=== PATIENT | female | born 1980 | race Caucasian/White ===

== ENCOUNTER 2017-11-05 19:00 | Inpatient (IN) | payer OTHER ==
[~2017-11-05] VITALS: Ht 165.1 cm; Wt 78.0 kg
[2017-11-12] MEDS ORDERED: CA C1TAB63 PO (06:56)
[2017-11-12] MEDS ORDERED: PREN1TAB60 PO (06:56)
[2017-11-12] MEDS ORDERED: OXYTOCIN 30U/ 0.9% NaCL 500ML 500 ML IV PRN (07:41)
[2017-11-12] MEDS ORDERED: OXYTOCIN 30U/ 0.9% NaCL 500ML 500 ML IV ONE (07:41)
[2017-11-12] MEDS ORDERED: TERBUTALINE 1 MG/ML, 1ML IVPush PRN ×2 (08:00)
[2017-11-12] MEDS ORDERED: TERBUTALINE 1 MG/ML, 1ML SQ PRN (08:00)
[2017-11-12] MEDS ORDERED: ONDANSETRON 2MG/ML, 2ML IVPush PRN (08:00)
[2017-11-12] MEDS ORDERED: FENTANYL PF 100 MCG/2ML IV PRN (08:00)
[2017-11-12] MEDS ORDERED: ALUMINUM/MAG/SIMETHICONE 30 ML UDC PO PRN (08:00)
[2017-11-12] MEDS ORDERED: METOCLOPRAMIDE 5 MG/ML, 2ML IVPush PRN (08:00)
[2017-11-12] MEDS ORDERED: OXYTOCIN 30U/ 0.9% NaCL 500ML 500 ML ONE ×2 (08:12→09:06)
[2017-11-12] MEDS: LACTATED RINGERS 1,000 ML IV SCH ×3 (08:24→14:50)
[2017-11-12 08:27] VITALS: BP 109/72
[2017-11-12 08:34] LABS: BASOPHILS # (AUTO) 0.02 x10^3/uL (0-0.1); BASOPHILS % (AUTO) 0 % (0-1); EOSINOPHILS # (AUTO) 0.05 x10^3/uL (0-0.4); EOSINOPHILS % (AUTO) 1 % (1-7); LYMPHOCYTES # (AUTO) 1.07 x10^3/uL (1-3.4); LYMPHOCYTES % (AUTO) 15 % (22-44); MD NO; MEAN CORPUSCULAR HEMOGLOBIN 31.8 pg (27.0-34.8); MEAN CORPUSCULAR HGB CONC 34.4 g/dL (32.4-35.8); MEAN CORPUSCULAR VOLUME 92.5 fL (80-100); MEAN PLATELET VOLUME 9.8 fL (7.4-10.4); MONOCYTES # (AUTO) 0.54 x10^3/uL (0.2-0.8); MONOCYTES % (AUTO) 7 % (2-9); NEUTROPHILS # (AUTO) 5.61 x10^3/uL (1.8-6.8); NEUTROPHILS % (AUTO) 77 % (42-75); PLATELET COUNT 128 x10^3/uL (130-400); RED BLOOD COUNT 3.67 x10^6/uL (3.82-5.3); RED CELL DISTRIBUTION WIDTH 14.1 % (9.6-15.2)
[2017-11-12] MEDS ORDERED: MISOPROSTOL 200 MCG TABLET ONE (09:05)
[2017-11-12] MEDS ORDERED: NEWBORN KIT ONE (09:05)
[2017-11-12] MEDS ORDERED: LIDOCAINE 1%, 50ML ONE (09:05)
[2017-11-12] MEDS ORDERED: FENTANYL/BUPIV./NS/PF 250 ML EPIDCONT SCH ×2 (13:30→16:20)
[2017-11-12] MEDS ORDERED: FENTANYL PF 100 MCG/2ML ONE ×2 (13:34→14:43)
[2017-11-12] MEDS: FENTANYL PF 100 MCG/2ML IVPush PRN ×2 (13:37→14:48)
[2017-11-12] MEDS ORDERED: LACTATED RINGERS 1,000 ML IV SCH (16:20)
[2017-11-12] MEDS ORDERED: BUPIVACAINE 0.25% ONE (16:21)
[2017-11-12] MEDS ORDERED: LACTATED RINGERS 1,000 ML IVBOLUS PRN (16:30)
[2017-11-12] MEDS ORDERED: NALOXONE 0.4 MG/ML, 1ML IVPush PRN (16:30)
[2017-11-12] MEDS ORDERED: EPHEDRINE 50 MG/ML, 1ML IVPush PRN (16:30)
[2017-11-12] MEDS: OXYTOCIN 30U/ 0.9% NaCL 500ML 500 ML IV SCH (18:33)
[2017-11-12] MEDS ORDERED: MEASLES,MUMPS&RUBELLA VACC/PF 0.5 ML SQ-VACC PRN (19:00)
[2017-11-12] MEDS ORDERED: OXYcodone/APAP 5/325MG TABLET PO PRN (19:00)
[2017-11-12] MEDS ORDERED: MISOPROSTOL 200 MCG TABLET PR PRN (19:00)
[2017-11-12] MEDS ORDERED: ACETAMINOPHEN 325 MG TABLET PO PRN (19:00)
[2017-11-12] MEDS ORDERED: DIPH,PERTUSS(ACELL),TET VAC/PF NC IM-VACC PRN (19:00)
[2017-11-12] MEDS ORDERED: CARBOPROST TROMETHAMINE 250 MCG/ML, 1ML IM PRN (19:00)
[2017-11-12] MEDS ORDERED: IBUPROFEN 600 MG TABLET ONE (19:28)
[2017-11-12] MEDS: IBUPROFEN 600 MG TABLET PO PRN (19:29)
[2017-11-12] MEDS ORDERED: OXYcodone/APAP 5/325MG TABLET ONE (19:48)
[2017-11-12 20:45] VITALS: BP 115/70
[2017-11-13 00:30] VITALS: BP 111/69
[2017-11-13] MEDS: OXYcodone/APAP 5/325MG TABLET PO PRN ×2 (00:59→02:00)
[2017-11-13 02:27] LABS: BASOPHILS # (AUTO) 0.04 x10^3/uL (0-0.1); BASOPHILS % (AUTO) 0 % (0-1); EOSINOPHILS # (AUTO) 0.02 x10^3/uL (0-0.4); EOSINOPHILS % (AUTO) 0 % (1-7); LYMPHOCYTES # (AUTO) 0.77 x10^3/uL (1-3.4); LYMPHOCYTES % (AUTO) 7 % (22-44); MD NO; MEAN CORPUSCULAR HEMOGLOBIN 31.6 pg (27.0-34.8); MEAN CORPUSCULAR HGB CONC 34.3 g/dL (32.4-35.8); MEAN CORPUSCULAR VOLUME 92.1 fL (80-100); MEAN PLATELET VOLUME 9.7 fL (7.4-10.4); MONOCYTES # (AUTO) 0.71 x10^3/uL (0.2-0.8); MONOCYTES % (AUTO) 7 % (2-9); NEUTROPHILS # (AUTO) 9.31 x10^3/uL (1.8-6.8); NEUTROPHILS % (AUTO) 86 % (42-75); PLATELET COUNT 136 x10^3/uL (130-400); RED BLOOD COUNT 3.44 x10^6/uL (3.82-5.3); RED CELL DISTRIBUTION WIDTH 13.7 % (9.6-15.2)
[2017-11-13 03:40] VITALS: BP 91/44
[2017-11-13] MEDS: OXYTOCIN 30U/ 0.9% NaCL 500ML 500 ML IV SCH ×2 (04:25→14:33)
[2017-11-13] MEDS: LACTATED RINGERS 1,000 ML IV SCH (07:47)
[2017-11-13] MEDS: IBUPROFEN 600 MG TABLET PO PRN ×2 (08:29→16:22)
[2017-11-13 08:44] VITALS: BP 99/61
[2017-11-13] MEDS ORDERED: PRENATAL VIT/IRON/FA 1 EACH TABLET PO SCH (09:00)
[2017-11-13 12:12] VITALS: BP 128/85
[2017-11-13 12:15] VITALS: BP 100/62
== END 2017-11-13 18:26 | disposition home or self-care (01) | DRG 775 ==
LOC: LDIP 11-12 06:09 → 2NW 11-12 20:36
PROVIDERS: ADMIT Obstetrics & Gynecology Maternal & Fetal Medicine; ATTEND Obstetrics & Gynecology Maternal & Fetal Medicine
PROC: 10E0XZZ Delivery of Products of Conception, External Approach (ICD-10-PCS; principal; 2017-11-12)
PROC: 0KQM0ZZ Repair Perineum Muscle, Open Approach (ICD-10-PCS; 2017-11-12)
PROC: 3E033VJ Introduction of Other Hormone into Peripheral Vein, Percutaneous Approach (ICD-10-PCS; 2017-11-12)
PROC: 10H07YZ Insertion of Other Device into Products of Conception, Via Natural or Artificial Opening (ICD-10-PCS; 2017-11-12)
PROC: 3E0R3BZ Introduction of Anesthetic Agent into Spinal Canal, Percutaneous Approach (ICD-10-PCS; 2017-11-12)
PROC: 00HU33Z Insertion of Infusion Device into Spinal Canal, Percutaneous Approach (ICD-10-PCS; 2017-11-12)
DX: O34.219 Maternal care for unspecified type scar from previous cesarean delivery (principal); Z37.0 Single live birth; Z3A.41 41 weeks gestation of pregnancy; O70.1 Second degree perineal laceration during delivery
CPT/HCPCS: 36415; 85025; 86850; 86900; 86923; J3010; J2590; J7120